=== PATIENT | male | born 1985 | race African-American/Black ===

== ENCOUNTER 2020-02-23 23:49 | Emergency (ER) | payer SELFPAY ==
[~2020-02-23] VITALS: Ht 180.3 cm; Wt 72.6 kg
--- NOTE | 2020-02-23 23:59 | Emergency Room Report ---
History of Present Illness General Chief Complaint: Alcohol Intoxication Source: Patient, EMS Present Illness HPI 36-year-old -[place] male Matt Alexandre brought in by ambulance with altered mental status. According to EMS, bystanders called them to bring him to the ER for evaluation as [place] was [place]. There is no visible trauma. Accu-Chek was within normal limits on scene. History is limited secondary to patient's altered mental status. He nods "no" when I asked him about any complaint of physical pain and is asking "just let me sleep" The patient's symptoms were gradual onset, severity was moderate, duration since unknown amount of days. Quality: Unable to obtain Past medical history: Unable to obtain Past surgical history: Unable to obtain Smoking: Unable to obtain Alcohol use: Unable to obtain Drug use: Unable to obtain Review of systems: Limited secondary to patient's altered mental status 14 point Review of Systems is otherwise negative except per HPI Physical Exam: GENERAL: Awake_alert_ nontoxic, no acute distress Spo2 98% on RA -normal EYES: Extraocular muscles are intact. Conjunctivae clear. Lids without swelling. No nystagmus. No hyphema. ENT: External nose and ear normal_in_appearance. Oropharynx clear. Head_atraumatic, Moist_oral_mucosa No midface instability NECK: No JVD. No meningismus. No thyromegaly. Supple. Trachea midline. No cervical, thoracic, lumbar spinal step-offs or deformity RESP: Normal respiratory effort. Symmetric rise. No stridor. Clear_to_auscultation_No_rales_No_wheezes CARDIAC: Regular rate and regular rhytm. No_significant pedal edema. ABDOMEN: Soft. Nondistended. Nontender_No_rebound_or_guarding. No pelvic instability MSK: Normal muscle tone, without rigidity. Extremities without asymmetric deformity or swelling. SKIN: Warm and dry. No visible cyanosis or pallor NEUROLOGIC: Uncooperative. Motor_and_sensation_grossly_intact. No truncal ataxia. Gait_normal Psych: Normal mood and affect, normal judgment and insight - COORDINATION OF CARE Case was discussed with: Patient Any labs and imaging that were ordered were interpreted as part of the medical decision making: Medical Decision Making/Plan: Differential diagnosis includes psychosis, delusions, paranoid schizophrenia, drug abuse, drug intoxication, drug overdose, among others. Patient was initially sleeping, but uncooperative with examination. Upon getting labs and EKG, patient apparently became combative with the ER staff. He attempted to assault staff and shouted explicits towards them. Once awake, he was noted to be AOx4. He was able to give his full name and date of . He is refusing further medical care and wanting to leave. A Glycerine Plant Operator consult was offered to the patient but the patient declined. The patient denies any suicide attempt, overdose, or ingestion. They exhibit no signs of any toxic syndrome or drug / alcohol withdrawal. Labs were ordered for evaluation but patient refused. Pt eloped from the ER Allergies: Coded Allergies: No Known Allergies (Unverified , 02/23/20) COVID-19 Screening Contact w/high risk pt: No Experienced COVID-19 symptoms?: No COVID-19 Testing performed FILM PROCESSING SUPERVISOR: No Nursing Documentation-[facility] Past Medical History: No Stated History Physical Exam Vital Signs Date Time Temp Pulse Resp B/P (MAP) Pulse Ox O2 Delivery O2 Flow Rate FiO2 02/23/20 23:44 98.1 74 16 115/73 (87) 98 Room Air Sp02 EP Interpretation: reviewed, normal Medical Decision Making Diagnostic Impression: Primary Impression: Altered mental status EKG Diagnostic Results Troponin ordered: Yes Rhythm Strip Diag. Results Rhythm Strip Time: 23:59 EP Interpretation: yes Rate: 74 Rhythm: NSR, no PVC's, no ectopy Last Vital Signs Date Time Temp Pulse Resp B/P (MAP) Pulse Ox O2 Delivery O2 Flow Rate FiO2 02/23/20 23:44 98.1 74 16 115/73 (87) 98 Room Air Disposition: ELOPED Admit Decision Time: 00:25 Condition: Stable Christina Mercer D.O. Feb 23, 2020 23:59
[2020-02-24] VITALS: BP 115/73
--- NOTE | 2020-02-24 | NUR ---
ED Nurse Note: brought in by ambulance anette ra [address]o et[address]. upon arrival patient ao4 with no acute distress. calm but uncooperative. denies homelessness. refused gown and monitor. denies pain or other complaints. refused accucheck. all safety measures met.
--- NOTE | 2020-02-24 00:20 | NUR ---
ED Nurse Note: pt verbally aggressive, attempted to assault staff, shouting profanities and refusing medical care. ERMD notified and aware. Pt continues to be verbally and physically aggressive.
[2020-02-24 00:25] VITALS: BP 115/73
--- NOTE | 2020-02-24 00:25 | NUR ---
ELOPEMENT: patient refused all care. explained risk and benefits x3; patient still refused. patient ambulated out of ed with all belongings. patient ao4 with steady gait. patient took all belongings
--- NOTE | 2020-02-24 06:38 | NUR ---
POST DISCHARGE NOTE SW received a consult for homelessness and substance abuse. No social work supervisor staff was available at the time of discharge.
== END 2020-02-24 00:25 | disposition left against medical advice (07) ==
LOC: EDBD 23:49 → EMR 02-24 00:16
DX: R41.82 Altered mental status, unspecified (principal)
CPT/HCPCS: 99281